=== PATIENT | female | born 1995 | race Caucasian/White ===

== ENCOUNTER → 2019-10-17 | Outpatient (CLI) | payer MEDICAID ==
--- NOTE | 2019-10-17 10:57 | RADIOLOGY REPORT (SQ) ---
EXAM DESCRIPTION: U/S [id number] TRNABD 1GES W/ODOP IMAGES COMPLETED DATE/TIME: 10/17/2019 9:44 am REASON FOR STUDY: Z34.01 ENCNTR FOR SUPRVSN OF NORMAL FIRST PREG, FIRST TRIMESTER Z34.01 ENCNTR FOR SUPRVSN OF NORMAL FIRST PREG, FIRST TRIMES COMPARISON: None. TECHNIQUE: Transvaginal static and realtime grayscale images acquired of the pelvis. Additional erica cted spectral and color Doppler images recorded. All images stored on PACs. bHCG: Not available. CLINICAL DATES: 14 week 3 day. LIMITATIONS: None. FINDINGS: FETUS: Single Living intrauterine . ULTRASOUND EGA: 6 week 2 day. ULTRASOUND KELSY: 06/09/2020. EFW: Not applicable less than 20 weeks. CRL: 0.5 cm. FHR: 117 beats per minute. SURVEY: No visualized anomalies. AMNIOTIC FLUID: Adequate amount. PLACENTA: Not yet developed due to early gestation. SUBCHORIONIC BLEED: No. SIZE OF BLEED: Not applicable. UTERUS: No masses. No anomalies. CERVICAL LENGTH: 1.7 cm. Closed. RIGHT ADNEXA: Ovary not identified due to poor acoustical window. No adnexal free fluid. No adnexal masses. LEFT ADNEXA: Ovary not identified due to poor acoustical window. No adnexal free fluid. No adnexal masses. FREE FLUID: None. OTHER: No other significant finding. IMPRESSION: LIVING INTRAUTERINE . EGA 6 WEEK 2 DAY. Trimester of : First trimester - 0 to 13 weeks. TECHNICAL DOCUMENTATION: JOB ID: [id number] 2010 [employer]- All Rights Reserved rev Reading location - IP/workstation name: [email or web address]
== END ==
LOC: RAD 08:13
PROVIDERS: ATTEND Nurse Practitioner Family
DX: Z34.01 Encounter for supervision of normal first pregnancy, first trimester (principal); Z3A.01 Less than 8 weeks gestation of pregnancy
CPT/HCPCS: 76801

== ENCOUNTER 2020-04-15 13:30 | Outpatient (CLI) | payer MEDICAID ==
[2020-04-15 14:04] LABS: ABSOLUTE LYMPHOCYTES (AUTO) 1.7 10^3/uL (0.5-4.7); ABSOLUTE MONOCYTES (AUTO) 0.8 10^3/uL (0.1-1.4); ABSOLUTE NEUT (AUTO) 11.5 10^3/uL (1.7-8.2); BASOPHILS % (AUTO) 0.3 % (0-2); EOSINOPHILS % (AUTO) 0.2 % (0-6); HEMATOCRIT 36.6 % (36.0-47.0); HEMOGLOBIN 12.5 g/dL (12.0-15.5); MEAN CORPUSCULAR HEMOGLOBIN 29.5 pg (27.0-33.4); MEAN CORPUSCULAR HGB CONC 34.2 g/dL (32.0-36.0); MEAN CORPUSCULAR VOLUME 86 fl (80-97); MONOCYTES % (AUTO) 5.4 % (3-13); PLATELET COUNT 326 10^3/uL (150-450); RED BLOOD COUNT 4.24 10^6/uL (3.72-5.28); SEGMENTED NEUTROPHILS % (AUTO) 82.1 % (42-78); TOTAL CELLS COUNTED % (AUTO) 100 %
[2020-04-15 14:31] LABS: ALBUMIN 3.4 g/dL (3.5-5.0); ALKALINE PHOSPHATASE 127 U/L (38-126); ANION GAP 5 (5-19); ASPARTATE AMINO TRANSFERASE 15 U/L (14-36); BILIRUBIN,DIRECT 0.2 mg/dL (0.0-0.4); BILIRUBIN,TOTAL 0.3 mg/dL (0.2-1.3); BLOOD UREA NITROGEN 6 mg/dL (7-20); CALCIUM 9.2 mg/dL (8.4-10.2); CARBON DIOXIDE 22 mmol/L (22-30); CHLORIDE 105 mmol/L (98-107); GLUCOSE 104 mg/dL (75-110); POTASSIUM 4.4 mmol/L (3.6-5.0); TOTAL PROTEIN 6.3 g/dL (6.3-8.2); URIC ACID 5.1 mg/dL (2.5-6.2)
[2020-04-15 14:34] LABS: UR PRO/CREAT RATIO RESULT 0.1 mg/mg (0.0-0.2); URINE PROTEIN 16.9 mg/dL (<12)
--- NOTE | 2020-04-15 14:38 | Non Stress Test Report ---
Non Stress Test Datetime Report Generated by CPN: 04/15/2020 14:38 DEMOGRAPHIC EGA NST: 32.1 INDICATION Indication for Study (NST) Other: IUP at 32.1; PreE workup VITAL SIGNS Temperature - NST: 97.5 Pulse - NST: 106 RESP - NST: 18 NBPSYS NST: 148 NBPDIA NST: 96 MONITORING Monitor Explained: Monitor Explained; Test Explained; Patient Verbalized Understanding Time on Monitor: 04/15/2020 13:47 Time off Monitor: 04/15/2020 14:30 NST Duration: 43 NST INTERVENTIONS NST Interventions: PO Hydration Physician Notified NST: J. Gallardo, CNM BABY A: [id number] BABY A Movement : Present Contraction Frequency : 0 FHR Baseline : 145 Accelerations : 15X15 Decelerations : None Variability : Moderate 6-25bpm NST Review: Meets Criteria for Reactive NST NST Review and Verified By : Rosaura Etienne RNC NST Results: Reactive NST REPORT Report Trigger: Send Report
[2020-04-15 15:27] LABS: URINE AMPHETAMINES SCREEN NEGATIVE; URINE BARBITURATES SCREEN NEGATIVE; URINE BENZODIAZEPINES SCREEN NEGATIVE; URINE COCAINE SCREEN NEGATIVE; URINE MARIJUANA (THC) SCREEN NEGATIVE; URINE METHADONE SCREEN NEGATIVE; URINE PHENCYCLIDINE SCREEN NEGATIVE
[2020-04-15 16:13] LABS: APPEARANCE,URINE SLIGHTLY-CLOUDY; BILIRUBIN,URINE NEGATIVE (NEGATIVE); COLOR,URINE YELLOW; GLUCOSE, URINE NEGATIVE (NEGATIVE); KETONES,URINE NEGATIVE (NEGATIVE); LEUKOCYTE ESTERASE,URINE LARGE (NEGATIVE); NITRITE,URINE NEGATIVE (NEGATIVE); PROTEIN,URINE 30 mg/dL (NEGATIVE); URINE SPECIFIC GRAVITY 1.019
[2020-04-15 16:24] LABS: CHLAM PCR DETECTED (NOT DETECT)
--- NOTE | 2020-04-15 17:11 | PDOC PROGRESS REPORT ---
Subjective Date:: 04/15/20 Subjective:: Good FM, No MALIK, CP, SOB, abdominal pain, nausea/vomiting or vision changes. Reason For Visit: LABOR CHECK Here for PIH evaluation d/t elevated blood pressure in the office. Physical Exam - Physical Exam Vital Signs: Intake & Output 04/14/20 04/15/20 04/16/20 06:59 06:59 06:59 Weight 97.5 kg General appearance: PRESENT: no acute distress, cooperative Respiratory exam: PRESENT: clear to auscultation sincere Cardiovascular exam: PRESENT: RRR, +S1, +S2 GI/Abdominal exam: PRESENT: soft Neurological exam: PRESENT: alert, awake Result Laboratory Results: 04/15/20 13:53 04/15/20 13:53 04/15/20 04/15/20 04/15/20 13:39 13:53 13:53 WBC 14.0 H RBC 4.24 Hgb 12.5 Hct 36.6 MCV 86 MCH 29.5 MCHC 34.2 RDW 15.0 H Plt Count 326 Seg Neutrophils % 82.1 H Sodium 132.0 L Potassium 4.4 Chloride 105 Carbon Dioxide 22 Anion Gap 5 BUN 6 L Creatinine 0.54 Est GFR ( Amer) > 60 Glucose 104 Uric Acid 5.1 Calcium 9.2 Total Bilirubin 0.3 AST 15 Alkaline Phosphatase 127 H Total Protein 6.3 Albumin 3.4 L Urine Color YELLOW Urine Appearance SLIGHTLY-CLOUDY Urine pH 6.0 Ur Specific [place] 1.019 Urine Protein 30 H Urine Glucose (UA) NEGATIVE Urine Ketones NEGATIVE Urine Blood NEGATIVE Urine Nitrite NEGATIVE Ur Leukocyte Esterase LARGE H Urine WBC (Auto) 16 Urine RBC (Auto) 2 Assessment & Plan - Diagnosis (1) Elevated blood pressure affecting in third trimester, antepartum Is this a current diagnosis for this admission?: Yes (2) Chlamydia infection affecting Qualifiers: Trimester: third trimester Qualified Code(s): O98.813 - Other maternal infectious and parasitic diseases complicating , third trimester; A74.9 - Chlamydial infection, unspecified Is this a current diagnosis for this admission?: Yes - Time Time Spent with patient: Less than 15 minutes Anticipated discharge: Home Anticipated DC Timeframe: within 24 hours - Plan Summary Plan Summary: 32 wks EGA with elevated b/p, first episode and chlamydia -VS with mildly elevated b/p no severes. -Exam negative. GBS obtained and g/c probe due 32 wks with preE evaluation and hx of chlamydia this and no AMITA -PIH Labs neg, p:C 0.1 -CHlamydia pos, will treat with azithromycin and have her f/u office. WIll need AMITA In 4 wks. FOB needs tx as well prior to resuming intercourse -PreE precautions dicussed -F/u in office in 1 wk sooner PRN
== END 2020-04-15 15:50 | disposition home or self-care (01) ==
LOC: LC 13:30
PROVIDERS: ATTEND Obstetrics & Gynecology
DX: O13.3 Gestational [pregnancy-induced] hypertension without significant proteinuria, third trimester (principal); Z3A.32 32 weeks gestation of pregnancy
CPT/HCPCS: 36415; 80053; 80307; 81001; 82570; 83615; 84156; 84550; 85025; 87081; 87491; 87591

== ENCOUNTER 2020-04-25 19:06 | Outpatient (CLI) | payer MEDICAID ==
[2020-04-25] MEDS ORDERED: NIFEDIPINE 30 MG TAB.ER.24 PO ONE ×2 (19:36→19:37)
[2020-04-25 20:01] LABS: BACTERIA (WET MOUNT) 3+ BACTERIA SEEN; EPITHELIALS (WET MOUNT) 3+ EPITHELIALS SEEN; RBCS (WET MOUNT) FEW RBCS SEEN; T.VAGINALIS (WET MOUNT) NO TRICHOMONAS SEEN; WBCS (WET MOUNT) 2+ WBCS SEEN; YEAST (WET MOUNT) NO YEAST SEEN
[2020-04-25 20:16] LABS: APPEARANCE,URINE CLEAR; BILIRUBIN,URINE NEGATIVE (NEGATIVE); COLOR,URINE YELLOW; GLUCOSE, URINE NEGATIVE (NEGATIVE); KETONES,URINE NEGATIVE (NEGATIVE); LEUKOCYTE ESTERASE,URINE SMALL (NEGATIVE); NITRITE,URINE NEGATIVE (NEGATIVE); PROTEIN,URINE NEGATIVE (NEGATIVE); URINE SPECIFIC GRAVITY 1.008; UROBILINOGEN,URINE NEGATIVE mg/dL (<2.0)
[2020-04-25 20:39] LABS: URINE AMPHETAMINES SCREEN NEGATIVE; URINE BARBITURATES SCREEN NEGATIVE; URINE BENZODIAZEPINES SCREEN NEGATIVE; URINE COCAINE SCREEN NEGATIVE; URINE MARIJUANA (THC) SCREEN NEGATIVE; URINE METHADONE SCREEN NEGATIVE; URINE PHENCYCLIDINE SCREEN NEGATIVE
--- NOTE | 2020-04-25 20:48 | Non Stress Test Report ---
Non Stress Test Datetime Report Generated by CPN: 04/25/2020 20:48 DEMOGRAPHIC EGA NST: 33.4 VITAL SIGNS Temperature - NST: 98.2 Pulse - NST: 100 RESP - NST: 16 NBPSYS NST: 135 NBPDIA NST: 93 MONITORING Monitor Explained: Monitor Explained; Test Explained; Patient Verbalized Understanding Time on Monitor: 04/25/2020 19:24 Time off Monitor: 04/25/2020 20:31 NST Duration: 67 NST INTERVENTIONS NST Interventions: None; Reposition Patient Physician Notified NST: Dr. Macedo BABY A: [id number] BABY A Movement : Present Contraction Frequency : none FHR Baseline : 130 Accelerations : 15X15 Decelerations : None Variability : Moderate 6-25bpm NST Review: Meets Criteria for Reactive NST NST Review and Verified By : Brandi Ward RN NST Results: Reactive NST REPORT Report Trigger: Send Report
== END 2020-04-25 20:40 | disposition home or self-care (01) ==
LOC: LC 19:06
PROVIDERS: ATTEND Obstetrics & Gynecology
DX: O36.8130 Decreased fetal movements, third trimester, not applicable or unspecified (principal); O13.3 Gestational [pregnancy-induced] hypertension without significant proteinuria, third trimester; Z3A.49 Greater than 42 weeks gestation of pregnancy
CPT/HCPCS: 59025; 87210; 81001; 80307; J3490